=== PATIENT | female | born 1970 | race Caucasian/White ===

== ENCOUNTER 2017-05-07 06:35 | Observation (INO) ==
[2017-05-07] MEDS ORDERED: Naloxone 0.4 MG/ML INJ IVP PRN (09:17)
[2017-05-07] MEDS ORDERED: cefOXitin 2,000 MG in D5% in Water (Mini-Bag+) 100 ML IVPB ONE (09:19)
[2017-05-07] MEDS ORDERED: Acetaminophen 325 MG TABLET PO PRN (09:20)
--- NOTE | 2017-05-07 09:30 | General Surg History&Physical ---
Date of Encounter: 05/07/17 Time of Encounter: 09:00 Assessment and Plan (1) Recurrent biliary colic Current Visit: Yes Status: Acute The assessment and plan as outlined above was discussed with the patient and/or family members who expressed understanding and agreement. All questions were answered. Nothing by mouth IV fluids Preoperative antibiotics- Mefoxin 2Gm Supportive care and pain control PPI therapy Incentives rounder every 1 hour while awake Check labs Risks, benefits, alternatives, expected outcomes were reviewed with the patient and she is in agreement to proceed to the operating room for a laparoscopic cholecystectomy with cholangiogram with Dr. Bob in the next 24 hours. (2) Cholelithiasis Current Visit: Yes Status: Chronic The assessment and plan as outlined above was discussed with the patient and/or family members who expressed understanding and agreement. All questions were answered. Nothing by mouth IV fluids Preoperative antibiotics- Mefoxin 2Gm Supportive care and pain control PPI therapy Incentives rounder every 1 hour while awake Check labs Risks, benefits, alternatives, expected outcomes were reviewed with the patient and she is in agreement to proceed to the operating room for a laparoscopic cholecystectomy with cholangiogram with Dr. Bob in the next 24 hours Qualifiers: Cholelithiasis location: gallbladder Cholecystitis presence: without cholecystitis Biliary obstruction: without biliary obstruction Qualified Code(s): K80.20 - Calculus of gallbladder without cholecystitis without obstruction (3) Nausea and vomiting Current Visit: Yes Status: Acute The assessment and plan as outlined above was discussed with the patient and/or family members who expressed understanding and agreement. All questions were answered. Antiemetics as needed for nausea and vomiting Qualifiers: Vomiting type: unspecified Qualified Code(s): R11.2 - Nausea with vomiting , unspecified (4) DVT prophylaxis Current Visit: Yes Status: Acute The assessment and plan as outlined above was discussed with the patient and/or family members who expressed understanding and agreement. All questions were answered. EPCDs to bilateral lower extremities for DVT prophylaxis Ambulate hallways 3 times a day History of Present Illness Chief complaint: Abdominal pain HPI: Ms. Gao is a 46 year old female who has been seen and evaluated by Dr. Bob as an outpatient for biliary dyskinesia and symptomatic cholelithiasis. She states that she was scheduled for outpatient surgery in 1 week however her symptoms have returned and she has been unable to experience relief. She states that her pain is located in her right upper quadrant pain present for the past 4 days. She states that the pain feels like a cramping pain which waxes and wanes. She states the pain does radiate into her right shoulder. She has had pain similar to this in the past but never to this severity. She reports significant nausea and vomiting for the last 4 days. She reports that she has been unable to keep anything down except for water and sprite for the last 4 days. She did attempt to eat crackers but states that she vomited them up immediately. She admits to chills but states she has no fevers. Denies any shortness of breath or chest pain. Denies any difficulty with urination. The patient was directly admitted this morning due to recurrence of symptoms. Past Med Surg Social Fam HX - Past Medical History Source: patient, old records reviewed Medical history: asthma, other (Degenerative Disc Disease) Psychiatric history: no psych history - Past Surgical History Surgical History: ( X 4), other (Back surgery L5-S1) - Social History Smoking Status: Never smoker Alcohol use: none Drug use: none Occupational status: employed Current living situation: Home - Independent Activity Level: Independent ambulation - Family History Mother Living Status: Still Living Father Living Status: Cause of : Car accident Medications and Allergies Ibuprofen [Motrin] 200 mg PO Q6HR PRN 05/07/17 [History] Omeprazole [PriLOSEC] 20 mg PO DAILY 05/07/17 [History] Ondansetron ODT [Zofran ODT] 4 - 8 mg SL Q8HR 05/07/17 [History] OxyCODONE Immed Rel [Roxicodone 5 MG] 5 mg PO Q6H PRN 05/07/17 [History] 3 Allergy/AdvReac Type Severity Reaction Status Date / Time NSAIDS (Non-Steroidal AdvReac See Verified 05/07/17 07:33 Anti-Inflamma Comments Sulfa (Sulfonamide AdvReac See Verified 05/07/17 07:33 Antibiotics) Comments Review of Systems All systems PM: reviewed and no additional remarkable complaints except as stated (in the HPI) All systems PM: A 10-system review of systems was performed and is negative for pertinent findings except as documented above in the HPI. General Surgery Exam Initial Vital Signs Temp Pulse Resp BP Pulse Ox 98.5 F 78 15 119/80 97 05/07/17 08:37 05/07/17 08:37 05/07/17 08:37 05/07/17 08:37 05/07/17 08:37 - General physical appearance well developed, well nourished, moderate distress, moderate pain - Eyes normal ocular movement - ENT normal mucosa, atraumatic, normocephalic - Neck trachea midline - Respiratory normal respiratory effort, clear to auscultation - Cardiovascular Cardiovascular exam: Present: RRR - Abdomen Abdomen general surgery: Present: bowel sounds present, soft, tender Abdominal Tenderness: Present: RUQ - Integumentary Integumentary general surgery: Present: warm and dry - Neurologic Present: CN 2-12 grossly intact - Psychiatric Psychiatric general surgery: Present: appropriate, oriented to person, oriented to place, oriented to time, speech is normal, memory intact Results - Labs All other labs normal. - Attending Attestation For this encounter, I have reviewed the LARRY OPERATOR or PA documentation, treatment plan, and medical decision making; and I have had face to face time with this patient.
[2017-05-07] MEDS: *HR* HYDROmorphone (PF) 1 MG/ML SYRINGE IVP PRN ×5 (10:11→18:30)
[2017-05-07] MEDS: 0.9 % Sodium Chloride 1,000 ML IVC SCH (10:12)
[2017-05-07] MEDS: Ondansetron 4 MG/2 ML VIAL IVP PRN (10:20)
[2017-05-07 10:25] LABS: Basophils % 0.5 %; Eosinophils # 0.4 K/mcL (0.0-0.6); Eosinophils % 5.3 %; Hematocrit 39.5 % (35.3-44.9); Hemoglobin 13.8 g/dL (11.5-15.4); Immature Granulocytes % 0.5 % (0-4); Lymphocytes # 2.3 K/mcL (0.6-4.6); Lymphocytes % 30.7 %; Mean Corpuscular HGB Conc 34.9 g/dL (31.6-35.5); Mean Corpuscular Hemoglobin 31.6 pg (28.0-33.3); Mean Corpuscular Volume 90.4 fL (83.0-100.0); Mean Platelet Volume 9.5 fL (9.4-12.4); Monocytes # 0.4 K/mcL (0.0-1.3); Monocytes % 5.8 %; Neutrophils # 4.2 K/mcL (1.6-8.9); Platelet Count 276 K/mcL (140-400); Red Blood Count 4.37 M/mcL (3.82-4.97); Segmented Neutrophils % 57.2 %
[2017-05-07 10:47] LABS: Alanine Aminotransferase 30 Units/L (0-55); Albumin 3.6 g/dL (3.5-5.0); Albumin/Globulin Ratio 0.9 (1.1-2.2); Alkaline Phosphatase 75 Units/L (38-126); Aspartate Amino Transferase 18 Units/L (5-34); BUN/Creatinine Ratio 18 (6-26); Bilirubin,Direct 0.4 mg/dL (0.0-0.5); Bilirubin,Indirect 1.1 mg/dL (0.0-1.2); Bilirubin,Total 1.5 mg/dL (0.2-1.2); Blood Urea Nitrogen 13 mg/dL (7-20); Calcium 9.2 mg/dL (8.6-10.8); Carbon Dioxide 22 mEq/L (19-29); Chloride 106 mEq/L (98-109); Globulin 3.8 g/dL (2.4-3.5); Glucose 99 mg/dL (70-99); Osmolality,Calculated 288 (280-300); Potassium 3.7 mEq/L (3.5-4.5); Sodium 139 mEq/L (136-145); Total Protein 7.4 g/dL (6.0-8.3); eGFR For African Americans > 60 (> 60); eGFR For Non-African Americans > 60 (> 60)
[2017-05-07 10:48] LABS: Lipase < 10 Units/L (8-78)
[2017-05-07] MEDS ORDERED: cefOXitin 2,000 MG in Water for inj. (sterile) 10 ML IVPB ONE (11:00)
[2017-05-07] MEDS ORDERED: Lidocaine -MPF 4% 5 ML AMPUL ONE (13:27)
[2017-05-07] MEDS ORDERED: Lidocaine -MPF 2% 2 ML VIAL ONE (13:27)
[2017-05-07] MEDS ORDERED: *HR* Rocuronium Bromide 50 MG/5 ML VIAL ONE (13:27)
[2017-05-07] MEDS ORDERED: *HR* Midazolam HCl 2 MG/2 ML VIAL ONE (13:28)
[2017-05-07] MEDS ORDERED: *HR* FentaNYL (PF) 100 MCG/2 ML VIAL ONE (13:28)
[2017-05-07] MEDS ORDERED: *HR* Propofol 200 MG/20 ML VIAL IVP ONE (13:28)
--- NOTE | 2017-05-07 13:45 | Anesthesia Evaluation PreOp ---
Date of Encounter: 05/07/17 Time of Encounter: 13:43 - Past History Planned Operation: lap edmar Cardiac History: Denies any Significant Hx Pulmonary History: Asthma CERT OCCUPATIONAL THERAPY ASST History: Denies Any Significant HX Other Medical History: Denies Any Significant HX Anesthesia History: No Prior Anesthetic Complications, Past Anesthesia (C/S, discectomy reports difficult airway) : No Test: Negative (05-07-17) Alcohol Use: none Drug use: none Medications and Allergies Ibuprofen [Motrin] 200 mg PO Q6HR PRN 05/07/17 [History] Omeprazole [PriLOSEC] 20 mg PO DAILY 05/07/17 [History] Ondansetron ODT [Zofran ODT] 4 - 8 mg SL Q8HR 05/07/17 [History] OxyCODONE Immed Rel [Roxicodone 5 MG] 5 mg PO Q6H PRN 05/07/17 [History] 3 Allergy/AdvReac Type Severity Reaction Status Date / Time NSAIDS (Non-Steroidal AdvReac See Verified 05/07/17 07:33 Anti-Inflamma Comments Sulfa (Sulfonamide AdvReac See Verified 05/07/17 07:33 Antibiotics) Comments - Meds/Allergy Pre-op Review Medications Reviewed: Yes Allergies Reviewed: Yes Beta Blockers on Current Med List: No Anesthesia Results - Labs 05/07/17 10:01 05/07/17 10:01 Anesthesia Exam Selected Entries 05/07/17 11:48 Temperature 99 F Pulse Rate 78 Respiratory Rate 16 Blood Pressure 133/83 O2 Sat by Pulse Oximetry 97 Weight: 83kg NPO (# of Hours): 8 - HEENT Pupil (Motor): EOMI Mallampati: III Teeth: Normal Oral Opening: Greater than 3 - CERT OCCUPATIONAL THERAPY ASST LOC: Oriented CERT OCCUPATIONAL THERAPY ASST Motor: Normal RUE, Normal LUE, Normal RLE, Normal LLE, Normal Face CERT OCCUPATIONAL THERAPY ASST Sensory: Normal: RUE, LUE, RLE, LLE, Face - Cardiac Rhythm: Regular Murmur: None - Pulmonary Breath Sounds: bilateral Clear Respiratory Effort: Symmetrical Anesthesia Assess/Plan ASA Score: 2 Modified Angel Scale for Level of Consciousness: Cooperative, oriented, and tranquil Anesthetic Plan: General Monitoring Plan: Standard Monitors Recovery Plan: PACU (disccussed risks of GA, agrees to proceed)
[2017-05-07] MEDS ORDERED: *HR* Succinylcholine 200 MG/10 ML VIAL IVP ONE (13:57)
--- NOTE | 2017-05-07 14:09 | Discharge Summary ---
Date of Encounter: 05/07/17 Time of Encounter: 14:07 - Discharge Diagnosis (1) Recurrent biliary colic Priority: Primary Status: Resolved (2) Cholelithiasis Priority: Primary Status: Resolved Qualifiers: Cholelithiasis location: gallbladder Cholecystitis presence: without cholecystitis Biliary obstruction: without biliary obstruction Qualified Code(s): K80.20 - Calculus of gallbladder without cholecystitis without obstruction (3) Nausea and vomiting Priority: Secondary Status: Resolved Qualifiers: Vomiting type: unspecified Qualified Code(s): R11.2 - Nausea with vomiting , unspecified - Discharge Medications Prescriptions: OxyCODONE/APAP 5/325 [Percocet 5/325 MG] 1 each PO Q4HR PRN #30 tablet PRN Reason: Moderate Pain Docusate [Colace] 100 mg PO BID #30 capsule Home Medications: Docusate [Colace] 100 mg PO BID #30 capsule 05/07/17 [Rx] Ibuprofen [Motrin] 200 mg PO Q6HR PRN 05/07/17 [History] Omeprazole [PriLOSEC] 20 mg PO DAILY 05/07/17 [History] Ondansetron ODT [Zofran ODT] 4 - 8 mg SL Q8HR 05/07/17 [History] OxyCODONE/APAP 5/325 [Percocet 5/325 MG] 1 each PO Q4HR PRN #30 tablet 05/07/17 [Rx] Allergies/Adverse Reactions: 3 Allergy/AdvReac Type Severity Reaction Status Date / Time NSAIDS (Non-Steroidal AdvReac See Verified 05/07/17 07:33 Anti-Inflamma Comments Sulfa (Sulfonamide AdvReac See Verified 05/07/17 07:33 Antibiotics) Comments General Surgery Exam Initial Vital Signs Temp Pulse Resp BP Pulse Ox 98.5 F 78 15 119/80 97 05/07/17 08:37 05/07/17 08:37 05/07/17 08:37 05/07/17 08:37 05/07/17 08:37 Date of admission: 05/07/17 06:39 Primary care physician: Elizabeth Dickinson CNP Discharging clinician: Ministerio Humphries) Anticipated date of discharge: 05/07/17 - Patient Status Disposition: Home, Self-Care Condition: Good Overall status at discharge: patient is progressing back to baseline - Discharge Instructions Follow Up With: Elizabeth Dickinson CNP [Primary Care Provider] - Daisha Humphries CNP [Advanced Practice Nurse] - 05/19/17 9:30 am (Surgery follow-up) Additional Instructions: #1 may shower 05/08/17, no tub bath for 2 weeks #2 wash incisions with soap and water and pat dry daily #3 no lifting, pushing, pulling more than 15 pounds for the next 2 weeks #4 no driving until off narcotics for 24 hours and able to safely react in the car #5 may climb stairs - Diet and Activity Activity: other (See additional instructions above) Diet: advance to your usual diet - Hospital Course Hospital course: Ms. Gao is a 46 year old female with a history of cholelithiasis and biliary dyskinesia. She was directly admitted to the hospital with recurrent biliary dyskinesia. The patient was initiated on supportive measures including IV fluids and pain control. She was taken to the operating room with Dr. Bob for a cholecystectomy with intraoperative cholangiogram. We will begin discharged to home when the patient meets discharge criteria including: Tolerating liquids without nausea or vomiting, preoperative pain resolved and postoperative pain controlled with medication, vital signs are stable and afebrile, ambulating and voiding without difficulty. Plan for outpatient follow -up in the next 10-14 days. - Time Spent with Patient Total time spent providing and/or coordinating discharge services: Less than 30 minutes Labs on day of discharge: Labs from last 24 hours 05/07/17 05/07/17 05/07/17 11:58 10:01 10:01 WBC RBC Hgb Hct MCV MCH MCHC RDW Plt Count MPV Immature Gran % Seg Neutrophils % Lymphocytes % Monocytes % Eosinophils % Basophils % Neutrophils # Lymphocytes # Monocytes # Eosinophils # Basophils # Sodium 139 Potassium 3.7 Chloride 106 Carbon Dioxide 22 BUN 13 Creatinine 0.71 Est GFR ( Amer) > 60 Est GFR (Non-Af Amer) > 60 BUN/Creatinine Ratio 18 Glucose 99 POC Glucose 88 Calculated Osmolality 288 Calcium 9.2 Total Bilirubin 1.5 H Direct Bilirubin 0.4 Indirect Bilirubin 1.1 AST 18 ALT 30 Alkaline Phosphatase 75 Serum Total Protein 7.4 Albumin 3.6 Globulin 3.8 H Albumin/Globulin Ratio 0.9 L Lipase < 10 Serum , Qual Negative 11/22/17 10:01 WBC 7.4 RBC 4.37 Hgb 13.8 Hct 39.5 MCV 90.4 MCH 31.6 MCHC 34.9 RDW 12.0 Plt Count 276 MPV 9.5 Immature Gran % 0.5 Seg Neutrophils % 57.2 Lymphocytes % 30.7 Monocytes % 5.8 Eosinophils % 5.3 Basophils % 0.5 Neutrophils # 4.2 Lymphocytes # 2.3 Monocytes # 0.4 Eosinophils # 0.4 Basophils # 0.0 Sodium Potassium Chloride Carbon Dioxide BUN Creatinine Est GFR ( Amer) Est GFR (Non-Af Amer) BUN/Creatinine Ratio Glucose POC Glucose Calculated Osmolality Calcium Total Bilirubin Direct Bilirubin Indirect Bilirubin AST ALT Alkaline Phosphatase Serum Total Protein Albumin Globulin Albumin/Globulin Ratio Lipase Serum , Qual - Attending Attestation For this encounter, I have reviewed the LEATHER PATCHER or PA documentation, treatment plan, and medical decision making; and I have had face to face time with this patient.
[2017-05-07] MEDS ORDERED: Ondansetron 4 MG/2 ML VIAL IVP ONE ×2 (14:49→16:53)
[2017-05-07] MEDS ORDERED: *HR* Labetalol 20 MG/4 ML SYRINGE IVP PRN ×2 (14:49→16:53)
[2017-05-07] MEDS ORDERED: *HR* Promethazine 25 MG/ML VIAL IVP PRN ×2 (14:49→16:53)
[2017-05-07] MEDS ORDERED: *HR* HYDROmorphone (PF) 1 MG/ML SYRINGE IVP PRN ×2 (14:49→16:53)
[2017-05-07] MEDS ORDERED: CefOXitin 2,000 MG VIAL ONE (14:51)
[2017-05-07] MEDS ORDERED: Neostigmine Methylsulfate 3 MG/3 ML SYRINGE ONE (14:52)
[2017-05-07] MEDS ORDERED: *HR* HYDROmorphone 2 MG/ML SYRINGE ONE (15:05)
--- NOTE | 2017-05-07 15:19 | Operative Note ---
Date of procedure: 05/07/17 Pre-op diagnosis: Cholecystitis Post-op diagnosis: same Procedure: Laparoscopic cholecystectomy Anesthesia: ELÍAS Surgeon: Ministerio Bob Estimated blood loss (cc): 5 Specimen: Gallbladder Condition: stable Disposition: same day Procedure in Detail: After informed consent, the patient was taken the operating room placed in the supine position. After adequate sedation anesthesia the abdomen was prepped and draped. 2 talc was placed umbilicus and a Veress needle was inserted. Pneumoperitoneum was completed. A 5 mm cannulas placed leveling umbilicus. Another 12 mm cannulas placed at the level subxiphoid. 25 mm cannulas placed in the right anterior axillary line. Once in place gallbladder was found to be distended and had mucus within the gallbladder. This was drained. Gallbladder was retracted anteriorly and cephalad. The cystic duct was very stenotic and fatigue. I was unable to cannulate it with a cholangiocatheter. At this point it was clipped twice proximally and then transected. The cystic artery was handled the same fashion. Gallbladder was resected off the liver surface looked cautery. Once it was completely resected is placed in a back and then removed through the subxiphoid port. A 12 mm cannula site was then evacuated. The fascia was closed with 0 Vicryl suture. Skin was closed 4-0 Vicryl suture and Dermabond. She tolerated the procedure well.
[2017-05-07] MEDS ORDERED: Dexamethasone 4 MG/ML VIAL ONE (15:39)
[2017-05-07] MEDS ORDERED: Ondansetron 4 MG/2 ML VIAL ONE (15:39)
[2017-05-08] MEDS: *HR* OxyCODONE/APAP 5/325 TABLET PO PRN ×2 (02:42→09:09)
[2017-05-08] MEDS: 0.9 % Sodium Chloride 1,000 ML IVC SCH ×2 (02:42→07:48)
[2017-05-08] MEDS: Ondansetron 4 MG/2 ML VIAL IVP PRN (02:45)
[2017-05-08 07:40] VITALS: BP 124/81
== END 2017-05-08 10:39 | disposition home or self-care (01) ==
LOC: 3ANU
PROVIDERS: ADMIT Surgery; ATTEND Surgery